=== PATIENT | female | born 1985 | race Two or more races ===

== ENCOUNTER 2017-06-19 18:30 | Emergency (ER) | payer MEDICAID ==
[2017-06-19 18:41] VITALS: RESP 16; TEMP 98.1
--- NOTE | 2017-06-19 19:11 | EDPHY ---
H & P Time Seen by Provider: 06/19/17 19:01 HPI/ROS: CHIEF COMPLAINT: Vomiting and left pelvic pain HISTORY OF PRESENT ILLNESS: The patient is a 31 y/o female complaining of nausea, vomiting, and left pelvic pain that began around 17:00, 2.5 hours ago. While she was passing a bowel movement this evening, she had a sudden onset of a sharp pain in her left pelvis. She then vomited once. The pain is constant, but has decreased in severity and is now moderate. Last menstrual period started today. No alleviating or aggravating factors. Denies urinary complaints, bowel complaints , vaginal discharge, weakness, fever or other pertinent symptoms. REVIEW OF SYSTEMS: Aside from elements discussed in the HPI, a comprehensive 10-point review of systems was reviewed and is negative. Past Medical/Surgical History: Fibromyalgia Social History: Friend at bedside, no alcohol or tobacco use Smoking Status: Never smoked Physical Exam: General Appearance: Alert, no distress Eyes: Pupils equal and round, no conjunctival pallor or injection ENT, Mouth: Mucous membranes moist Neck: Normal inspection Respiratory: Lungs are clear to auscultation Cardiovascular: Regular rate and rhythm Gastrointestinal: Left pelvic tenderness. Abdomen is soft Neurological: A&O, nonfocal exam Skin: Warm and dry, no rash Extremities: Normal inspection Psychiatric: Mood and affect normal Constitutional: Initial Vital Signs Temperature (C) 36.7 C 06/19/17 18:38 Heart Rate 73 06/19/17 18:38 Respiratory Rate 16 06/19/17 18:38 Blood Pressure 97/69 L 06/19/17 18:38 O2 Sat (%) 98 06/19/17 18:38 O2 Delivery Mode Room Air Allergies/Adverse Reactions: No Known Allergies Allergy (Unverified 06/19/17 18:38) Home Medications: Medication Instructions Recorded NK [No Known Home Meds] 06/19/17 Medical Decision Making - Diagnostics Imaging Results: Pelvic ultrasound read by reveals bilateral complex ovarian cysts, the largest in the left ovary measuring 2.9 x 2.5 cm. Associated with free fluid in the pelvis. Imaging: Discussed imaging studies w/ yard caller Radiologist, I viewed and interpreted images myself ED Course/Re-evaluation: The patient is a 31 y/o female presenting with left pelvic tenderness, onset 2.5 hours ago. Concerning for ruptured ovarian cyst versus ectopic . Urine test is negative. Ultrasound ordered. She is currently denying pain medication. Reassessed patient and discussed imaging and laboratory findings. Findings consistent with a ruptured ovarian cyst. There is no evidence or ovarian torsion. Warning signs discussed. She continues to feel better. Toradol 15 mg IV given. She will take ibuprofen 3 times daily as needed for pain. Follow up with senior pensions administrator. Differential Diagnosis: Differential diagnosis includes though it is not limited to ectopic , ovarian cyst, ovarian torsion, PID, UTI, appendicitis. - Data Points Laboratory Results: Laboratory Results 06/19/17 19:30 06/19/17 19:30 Medications Given: Discontinued Medications Sodium Chloride (Ns) 1,000 mls @ 0 mls/hr IV ONCE ONE; Wide Open PRN Reason: Protocol Stop: 06/19/17 20:58 Last Admin: 06/19/17 21:09 Dose: 1,000 mls Ketorolac Tromethamine (Toradol) 15 mg IVP EDNOW ONE Stop: 06/19/17 21:14 Last Admin: 06/19/17 21:15 Dose: 15 mg Ondansetron HCl (Zofran Odt 4 Mg Prepack#2) 1 btl TAKEHOME EDNOW ONE Stop: 06/19/17 21:24 Last Admin: 06/19/17 21:58 Dose: 1 btl Departure - Departure Disposition: Home, Routine, Self-Care Clinical Impression: Ruptured ovarian cyst Condition: Good Instructions: Ondansetron (By mouth), Ovarian Cyst (ED), Pelvic Pain (ED) Additional Instructions: You have bilateral ovarian cysts. 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 Zofran 1 tablet sublingually every 6 hours as needed for nausea. Ibuprofen 600 mg 3 times daily while the pain persists. Referrals: Liya Evans DO [Doctor of Osteopathy] - As per Instructions (Call to make an appointment.) Report Scribed for: Sravanthi Hawkins Report Scribed by: Zahra Jones Date of Report: 06/19/17 Time of Report: 19:11 Physician Review and Approval Statement: 06/19/17 19:11 Portions of this note were transcribed by a medical physics professor. I personally performed a history, physical exam, medical decision making, and confirmed accuracy of information the transcribed note.
[2017-06-19 19:38] LABS: % IMMATURE GRANULYOCYTES 0.2 % (0.0-1.1); ABSOLUTE IMMATURE GRANULOCYTES 0.02 10^3/uL (0.00-0.10); ADD DIFF? NO; ADD MORPH? NO; ADD SCAN? NO; ATYPICAL LYMPHOCYTE FLAG 0 (0-99); FRAGMENT RBC FLAG 0 (0-99); HEMATOCRIT 37.6 % (38.0-47.0); LEFT SHIFT FLG 0 (0-99); LIPEMIA HEMOLYSIS FLAG 90 (0-99); MEAN CELL HEMOGLOBIN 29.4 pg (27.9-34.1); MEAN CELL HEMOGLOBIN CONCENTR. 34.6 g/dL (32.4-36.7); MEAN CELL VOLUME 85.1 fL (81.5-99.8); MEAN PLATELET VOLUME 11.2 fL (8.7-11.7); PLATELET CLUMPS FLAG 0 (0-99); PLATELET COUNT 183 10^3/uL (150-400); RED BLOOD CELL COUNT 4.42 10^6/uL (4.18-5.33); RED CELL DISTRIBUTION WIDTH 12.9 % (11.5-15.2)
[2017-06-19 20:07] LABS: ANION GAP 15 mEq/L (8-16); CALCIUM 9.4 mg/dL (8.5-10.4); CARBON DIOXIDE 23 mEq/l (22-31); CHLORIDE 103 mEq/L (97-110); CREATININE 0.6 mg/dL (0.6-1.0); GLOMERULAR FILTRATION RATE > 60; GLUCOSE 97 mg/dL (70-100); POTASSIUM 3.6 mEq/L (3.5-5.2); SODIUM 141 mEq/L (134-144)
[2017-06-19] MEDS: NS 1,000 ML IV ONE (21:09)
[2017-06-19] MEDS: KETOROLAC 15 MG/1 ML SDV IVP ONE (21:15)
[2017-06-19] MEDS: ONDANSETRON 4MG PREPACK#2 BTL TAKEHOME ONE (21:58)
[2017-06-19 22:06] VITALS: BP 108/68; PULSE 76; O2SAT 97
== END 2017-06-19 22:08 | disposition home or self-care (01) ==
DX: N83.202 Unspecified ovarian cyst, left side (principal); N83.201 Unspecified ovarian cyst, right side; E86.9 Volume depletion, unspecified
CPT/HCPCS: 96374; J1885

== ENCOUNTER 2017-11-09 19:20 | Emergency (ER) | payer MEDICAID ==
[2017-11-09 19:23] VITALS: TEMP 97.5
[2017-11-09] MEDS ORDERED: NS 2,000 ML IV ONE (20:02)
--- NOTE | 2017-11-09 20:02 | EDPHY ---
H & P Stated Complaint: abd pain HX of ovarian cyst - Personal History LMP (Females 10-55): 1-7 Days Ago Current Tetanus/Diphtheria Vaccine: Unsure Current Tetanus Diphtheria and Acellular Pertussis (TDAP): Unsure - Medical/Surgical History Hx Asthma: No Hx Chronic Respiratory Disease: No Hx Diabetes: No Hx Cardiac Disease: No Hx Renal Disease: No Hx Cirrhosis: No Hx Alcoholism: No Hx HIV/AIDS: No Hx Splenectomy or Spleen Trauma: No Other PMH: ovarian cyst - Social History Smoking Status: Never smoked Time Seen by Provider: 11/09/17 19:49 HPI/ROS: CHIEF COMPLAINT: Lower abdominal pain HISTORY OF PRESENT ILLNESS: 32-year-old female history of ovarian cyst, no history of abdominal surgery, states that approximately an hour prior to arrival she developed sudden onset of bilateral lower abdominal pain which has by enlarged now resolved. She continues to experience mild right lower quadrant pain. Positive nausea time of incident, none currently. No back or flank pain. No urinary abnormality. No trauma. No recent illness. REVIEW OF SYSTEMS: A ten point review of systems was performed and is negative with the exception of the items mentioned in the HPI PAST MEDICAL & SURGICAL HISTORY: Ovarian cyst. No abdominal surgery history. SOCIAL HISTORY: Nonsmoker PHYSICAL EXAM (Prior to examination, patient consented to physical exam, hands were washed and my usual and customary physical exam procedures followed) 1) GENERAL: Well-developed, well-nourished, alert and oriented. Appears to be in no acute distress. 2) HEAD: Normocephalic, atraumatic 3) HEENT: Pupils equal, round, reactive to light bilaterally. Sclera anicteric. Nasopharynx, oropharynx, clear, no lesions. Moist mucous membranes 4) NECK: Full range of motion, no meningeal signs. 5) LUNGS: Clear auscultation bilaterally, no wheezes, no rhonchi, no retractions. 6) HEART: Regular rate and rhythm, no murmur, no heave, no gallop. 7) ABDOMEN: No guarding, tender to palpation right lower quadrant, negative Downey's, negative Rovsing's, negative peritoneal sign, 8) MUSCULOSKELETAL: Moving all extremities, no focal areas of tenderness, no obvious trauma. No peripheral edema or discoloration. 9) BACK: No CVA tenderness, no midline vertebral tenderness, no fluctuance, no step-off, no obvious trauma, no visual or palpable abnormality. 10) SKIN: No rash, no petechiae. 11) Psychiatric: Patient is oriented X 3, there is no agitation. DIFFERENTIAL DIAGNOSIS: My differential diagnosis includes, but is not limited to, acute appendicitis, acute cholecystitis, bowel obstruction, acute pancreatitis, ovarian torsion, ectopic , gastritis and urinary tract infection. The patient understands that this diagnosis is provisional and can never be 100% accurate. This is a partial list of diagnoses considered. These considerations are based on history, physical exam, past history and reassessment. (Cherie Salinas) Constitutional: Initial Vital Signs Temperature (C) 36.4 C 11/09/17 19:22 Heart Rate 90 11/09/17 19:22 Respiratory Rate 18 11/09/17 19:22 Blood Pressure 100/67 11/09/17 19:22 O2 Sat (%) 98 11/09/17 19:22 O2 Delivery Mode Room Air Allergies/Adverse Reactions: No Known Allergies Allergy (Unverified 06/19/17 18:38) Home Medications: Medication Instructions Recorded Nitrofurantoin Monohyd/M-Cryst 100 mg PO BID 5 Days capsule 11/10/17 [Macrobid 100 mg Capsule] Medical Decision Making ED Course/Re-evaluation: 12:15 a.m.- I followed up on this patient's urinalysis which revealed leukocyte esterase and white blood cells. This is concerning for urinary tract infection. I have explained this to her in she says she has had these before but the symptoms that she is having today feel different. I have written her for a course of Macrobid. She says she does not like to take antibiotics so will hold on taking this to see how she feels. I have encouraged that she drink plenty of fluids. I have ordered a urine culture. She will be discharged home. (Bella Dugan) 7:59 p.m.: Patient was evaluated by myself. She has a history of ovarian cyst. Her she is currently asymptomatic. I recommended pelvic ultrasonography. She states that last time she had a transvaginal ultrasound this was both painful and triggered emotional issues for the patient and she therefore declines any transvaginal imaging. Plan will be transabdominal imaging with full bladder which she states is currently not full. Care of patient under supervision of secondary supervising physician Dr Cuevas with whom I discussed care. 1105 p.m.: Abdominal ultrasound interpreted by radiologist shows a normal appearing base of appendix with tip of appendix not visualized with no secondary signs of acute appendicitis. Multiple follicular cysts noted on bilateral ovaries. I re-evaluated the patient at this time, discussed her laboratory results. She would like to leave, states that she is "totally better ". I re-examined her abdomen which is soft no guarding or rebound I am unable to elicit any abdominal pain on exam. She has been informed that acute appendicitis is not fully ruled out. At this time however I do not think that the benefits of CT imaging outweigh the risks in this patient whom I have a low pretest suspicion for acute appendicitis. I recommended close follow-up. Midnight: Care the patient turned over to Dr. Bella Dugan, urinalysis pending (Cherie Salinas) - Data Points Laboratory Results: Laboratory Results 11/09/17 20:09 11/09/17 20:09 Medications Given: Discontinued Medications Sodium Chloride (Ns) 2,000 mls @ 0 mls/hr IV ONCE ONE PRN Reason: Wide Open Stop: 11/09/17 20:03 Last Admin: 11/09/17 20:08 Dose: 2,000 mls Nitrofurantoin (Macrobid 100mg Prepack#2) 1 btl TAKEHOME EDNOW ONE PRN Reason: Protocol Stop: 11/10/17 00:03 Last Admin: 11/10/17 00:16 Dose: 1 btl Nitrofurantoin Macrocrystals (Macrobid) 100 mg PO EDNOW ONE PRN Reason: Protocol Stop: 11/10/17 00:03 Last Admin: 11/10/17 00:23 Dose: Not Given Departure - Departure Disposition: Home, Routine, Self-Care Clinical Impression: Abdominal pain, UTI (urinary tract infection) Condition: Good Instructions: Acute Abdominal Pain (ED) Additional Instructions: Seek immediate medical attention if you develop new or worsening symptoms, if you develop fevers, chills, inability to tolerate oral intake, or any other symptoms that concern you. Referrals: STEPHANIE VARGHESE [Primary Care Provider] - 1 day without fail Prescriptions: Nitrofurantoin Monohyd/M-Cryst [Macrobid 100 mg Capsule] 100 mg PO BID 5 Days capsule
[2017-11-09 20:14] LABS: PLATELET COUNT 211 10^3/uL (150-400)
[2017-11-10] MEDS ORDERED: NITROFURANTOIN 100MG PREPACK#2 BTL TAKEHOME ONE (00:02)
[2017-11-10] MEDS ORDERED: NITROFURANTOIN MACROBID 100 MG CAP PO ONE (00:02)
[2017-11-10 00:25] VITALS: BP 107/65; PULSE 74; RESP 16; O2SAT 97
== END 2017-11-10 00:24 | disposition home or self-care (01) ==
DX: N30.00 Acute cystitis without hematuria (principal); B96.89 Other specified bacterial agents as the cause of diseases classified elsewhere

== ENCOUNTER 2018-02-15 21:28 | Emergency (ER) | payer MEDICAID ==
[2018-02-15] MEDS ORDERED: NS 1,000 ML IV ONE ×2 (22:01→22:59)
[2018-02-15] MEDS ORDERED: ONDANSETRON 4 MG/2 ML VIAL IVP ONE (22:32)
[2018-02-15] MEDS ORDERED: METOCLOPRAMIDE 10 MG/2 ML VIAL IVP ONE (22:32)
--- NOTE | 2018-02-15 22:32 | EDPHY ---
General Time Seen by Provider: 02/15/18 22:22 Narrative: CHIEF COMPLAINT: nausea and vomiting HISTORY OF PRESENT ILLNESS: Patient presents with complaints of nausea vomiting and diarrhea. Symptoms started earlier this week with diarrhea. Present for several days without any bloody stools. Now progressing to nausea vomiting over the past 24-48 hours. No trauma or injury. No bloody emesis. No use of marijuana. Very rare use of alcohol. She has not been evaluated for this and has no previous episode of this. She has no modifying factors and has been unable to tolerate liquids today. No other associated complaints or modifying factors. REVIEW OF SYSTEMS: Ten systems reviewed and are negative unless otherwise noted in the HPI PCP: Dr. Constantino SPECIALISTS: None PAST MEDICAL HISTORY: Ovarian cyst, "chronic lyme disease" PAST SURGICAL HISTORY: No surgical history SOCIAL HISTORY: Nonsmoker. Occasional alcohol use. Works as a director of the [employer] HISTORY: Noncontributory EXAMINATION General Appearance: Alert, no distress. Well-developed well-nourished. Head: normocephalic, atraumatic Eyes: Pupils equal and round, no conjunctival pallor or injection ENT, Mouth: Mucous membranes dry. Airway widely patent with uvula midline. Neck: Normal inspection, supple, non-tender Respiratory: Lungs are clear to auscultation. No wheezing rhonchi or crackles Cardiovascular: Regular rate and rhythm. No murmur Gastrointestinal: Abdomen is soft and nontender. No tympany rigidity. No palpable masses. No guarding. Benign abdominal examination Back: non-tender, no bony abnormalities Neurological: A&O, nonfocal, normal gait Skin: Warm and dry, no rash Extremities: Nontender, no pedal edema Psychiatric: Mood and affect normal DIFFERENTIAL DIAGNOSES: Including but not limited to gastritis, gastroenteritis, enteritis, colitis, cholecystitis, cholelithiasis, inflammatory bowel, irritable bowel MDM: 10:30 p.m. Nausea, vomiting with intermittent diarrhea abdominal pain throughout the past week. Her abdominal exam is benign. Vital signs are within normal limits. She does not meet SIRS criteria. She is in no acute distress. I have ordered medications for nausea vomiting and laboratory studies. I do not feel she warrants imaging at this time but I will monitor re-evaluated. 11:30 p.m. Laboratory studies are completely unremarkable. Patient is currently receiving IV fluid and has received nausea medications. 12:00 a.m. Patient re-evaluated. She is feeling significantly better and tolerating intake of mouth. She is asking to be discharged home. She will be discharged home with oral nausea medications, ED precautions, GI referral. We discussed clear liquid diet, advancing slowly as tolerated. She has a primary care physician that she will contact. She is to return here if she does not have complete resolution of her symptoms within 24 hr, or sooner for any worsening symptoms. She is comfortable this plan and discharged home stable condition. SUPERVISION: This patient was independently evaluated without direct involvement of or examination by the attending physician. - History Smoking Status: Never smoked - Objective Vital Signs: Initial Vital Signs Temperature (C) 98.1 F 02/15/18 21:42 Heart Rate 84 02/15/18 21:42 Respiratory Rate 16 02/15/18 21:42 Blood Pressure 103/68 02/15/18 21:42 O2 Sat (%) 97 02/15/18 21:42 O2 Delivery Mode Room Air Allergies/Adverse Reactions: No Known Allergies Allergy (Unverified 06/19/17 18:38) Home Medications: Medication Instructions Recorded Ondansetron Odt [Zofran Odt 4 mg 4 mg PO Q6 PRN #12 tab 02/16/18 (*)] Promethazine HCl [Phenergan 25mg 25 mg PO Q8 PRN #12 tab 02/16/18 (*)] Laboratory Results: Laboratory Results 02/15/18 22:04 02/15/18 22:04 02/15/18 02/15/18 02/15/18 22:04 22:04 22:04 WBC 7.94 10^3/uL 10^3/uL (3.80-9.50) RBC 4.87 10^6/uL 10^6/uL (4.18-5.33) Hgb 13.8 g/dL g/dL (12.6-16.3) Hct 41.0 % % (38.0-47.0) MCV 84.2 fL fL (81.5-99.8) MCH 28.3 pg pg (27.9-34.1) MCHC 33.7 g/dL g/dL (32.4-36.7) RDW 13.4 % % (11.5-15.2) Plt Count 194 10^3/uL 10^3/uL (150-400) MPV 12.9 fL H fL (8.7-11.7) Neut % (Auto) 77.1 % H % (39.3-74.2) Lymph % (Auto) 17.1 % % (15.0-45.0) [place] % (Auto) 4.2 % L % (4.5-13.0) Eos % (Auto) 0.9 % % (0.6-7.6) Baso % (Auto) 0.4 % % (0.3-1.7) Nucleat RBC Rel Count 0.0 % % (0.0-0.2) Absolute Neuts (auto) 6.13 10^3/uL 10^3/uL (1.70-6.50) Absolute Lymphs (auto) 1.36 10^3/uL 10^3/uL (1.00-3.00) Absolute Monos (auto) 0.33 10^3/uL 10^3/uL (0.30-0.80) Absolute Eos (auto) 0.07 10^3/uL 10^3/uL (0.03-0.40) Absolute Basos (auto) 0.03 10^3/uL 10^3/uL (0.02-0.10) Absolute Nucleated RBC 0.00 10^3/uL 10^3/uL (0-0.01) Immature Gran % 0.3 % % (0.0-1.1) Immature Gran # 0.02 10^3/uL 10^3/uL (0.00-0.10) Sodium 140 mEq/L mEq/L (135-145) Potassium 3.9 mEq/L mEq/L (3.3-5.0) Chloride 106 mEq/L mEq/L (97-110) Carbon Dioxide 22 mEq/l mEq/l (22-31) Anion Gap 12 mEq/L mEq/L (8-16) BUN 14 mg/dL mg/dL (7-23) Creatinine 0.6 mg/dL mg/dL (0.6-1.0) Estimated GFR > 60 Glucose 97 mg/dL mg/dL (70-100) Calcium 10.0 mg/dL mg/dL (8.5-10.4) Total Bilirubin 0.7 mg/dL mg/dL (0.1-1.4) Conjugated Bilirubin 0.3 mg/dL mg/dL (0.0-0.5) Unconjugated Bilirubin 0.4 mg/dL mg/dL (0.0-1.1) AST 17 IU/L IU/L (14-46) ALT 27 IU/L IU/L (9-52) Alkaline Phosphatase 51 IU/L IU/L (38-126) Total Protein 7.4 g/dL g/dL (6.3-8.2) Albumin 4.3 g/dL g/dL (3.5-5.0) Lipase 56 IU/L IU/L (23-300) Beta HCG, Qual NEGATIVE Medications Given: Discontinued Medications Diphenhydramine HCl (Benadryl Injection) 50 mg IVP EDNOW ONE Stop: 02/15/18 22:33 Last Admin: 02/15/18 22:53 Dose: 50 mg Famotidine (Pepcid) 20 mg IVP EDNOW ONE Stop: 02/15/18 22:34 Last Admin: 02/15/18 22:53 Dose: 20 mg Sodium Chloride (Ns) 1,000 mls @ 0 mls/hr IV ONCE ONE; Wide Open PRN Reason: Protocol Stop: 02/15/18 22:02 Last Admin: 02/15/18 22:03 Dose: 1,000 mls Sodium Chloride (Ns) 1,000 mls @ 0 mls/hr IV EDNOW ONE; Wide Open PRN Reason: Protocol Stop: 02/15/18 23:00 Last Admin: 02/15/18 23:02 Dose: 1,000 mls Metoclopramide HCl (Reglan Injection) 10 mg IVP EDNOW ONE Stop: 02/15/18 22:33 Last Admin: 02/15/18 22:53 Dose: 10 mg Ondansetron HCl (Zofran) 4 mg IVP EDNOW ONE Stop: 02/15/18 22:33 Last Admin: 02/15/18 22:53 Dose: 4 mg Departure - Departure Disposition: Home, Routine, Self-Care Clinical Impression: Gastroenteritis Nausea & vomiting Qualifiers: Vomiting type: unspecified Vomiting Intractability: non-intractable Qualified Code(s): R11.2 - Nausea with vomiting, unspecified Condition: Good Instructions: Dehydration (ED), Gastroenteritis (ED), Acute Nausea and Vomiting (ED) Additional Instructions: 1. Nausea medications as prescribed as needed 2. Rmig-eal-izyqiqs Pepcid 20 mg twice daily for 5-7 days 3. Clear liquid diet, advancing slowly as tolerated 4. Return here for any worsening symptoms, intractable vomiting, fever or abdominal pain Referrals: STEPHANIE CONSTANTINO [Primary Care Provider] - As per Instructions Phan De León MD [Medical Doctor] - As per Instructions Stand Alone Forms: Work Excuse Prescriptions: Ondansetron Odt [Zofran Odt 4 mg (*)] 4 mg PO Q6 PRN #12 tab PRN Reason: Nausea/Vomiting, Use 1st Promethazine HCl [Phenergan 25mg (*)] 25 mg PO Q8 PRN #12 tab PRN Reason: Nausea/Vomiting, Use 1st
[2018-02-15] MEDS ORDERED: FAMOTIDINE 20 MG/2 ML SDV IVP ONE (22:33)
[2018-02-15 22:40] LABS: PLATELET COUNT 194 10^3/uL (150-400)
[2018-02-16 00:28] VITALS: BP 96/60
== END 2018-02-16 00:26 | disposition home or self-care (01) ==
DX: K52.9 Noninfective gastroenteritis and colitis, unspecified (principal); E86.9 Volume depletion, unspecified
CPT/HCPCS: 96374; J1200; J2405; J2765